=== PATIENT | female | born 1975 | race Caucasian/White ===

== ENCOUNTER 2024-02-02 06:32 | Day surgery (SDC) | payer MEDICAID ==
[~2024-02-02] VITALS: Ht 154.9 cm; Wt 72.1 kg
[2024-02-02] MEDS ORDERED: MIDAZOLAM HCL 5 MG/5 ML VIAL ONE (06:48)
[2024-02-02 06:49] LABS: HCG,QUAL RESULT NEGATIVE (NEGATIVE)
[2024-02-02] MEDS ORDERED: MEPERIDINE 100 MG INJ. 100 MG/ML VIAL ONE (07:15)
[2024-02-02] MEDS ORDERED: SIMETHICONE 40 MG/0.6 ML ML ONE (07:19)
[2024-02-02 08:52] VITALS: O2SAT 98
[2024-02-02 13:20] VITALS: BP_SYST 91; PULSE 67; RESP 13; TEMP 97.7
== END 2024-02-02 09:40 | disposition home or self-care (01) ==
LOC: SDS 06:32 → SMU 06:33 → SDS 09:40
PROVIDERS: ATTEND Student in an Organized Health Care Education/Training Program
DX: K62.5 Hemorrhage of anus and rectum (principal); K63.89 Other specified diseases of intestine; K64.4 Residual hemorrhoidal skin tags; K64.8 Other hemorrhoids; Z87.891 Personal history of nicotine dependence; Z80.0 Family history of malignant neoplasm of digestive organs
CPT/HCPCS: 45380; 99152; 84703; 88305; G0378; J2250; J2175